=== PATIENT | female | born 1960 | race African-American/Black ===

== ENCOUNTER 2016-12-25 13:40 | Emergency (ER) | payer MEDICAID ==
[~2016-12-25] VITALS: Ht 162.6 cm; Wt 99.8 kg
[~2016-12-25 13:40] MED LIST: BACTRIM-DS1 EA ORAL; CLINDAMYCIN HC300 MG ORAL; NORCO 5-325 TA1 EACH ORAL
[2016-12-25 14:03] VITALS: BP 102/71
[2016-12-25] MEDS ORDERED: Norco 5mg/325mg tab ORAL ONE (14:15)
[2016-12-25] MEDS ORDERED: PREDNISONE20 MG ORAL (14:21)
[2016-12-25] MEDS ORDERED: NORCO 5-325 TA1 EAC1 ORAL (14:21)
[2016-12-25] MEDS ORDERED: IBUPROFEN600 MG ORAL (14:21)
[2016-12-25] MEDS ORDERED: BLEPH-105 ML OP (14:21)
[2016-12-25 14:34] VITALS: BP 102/71
--- NOTE | 2016-12-26 21:30 | Emergency Room Report ---
History of Present Illness General Chief Complaint: Eye Problems Present Illness HPI The patient is a 48-year-old female with a history of lupus presenting for right eye redness and pain for the past 4 days. She has noticed a discharge described as yellow. Pain described as a 3/10 dull ache and does not radiate. Worse with touch. She has noticed swelling of the upper eyelid. She denies any changes in vision or other symptoms including N, V, F, chills Allergies: Coded Allergies: AMOXICILLIN (Verified Allergy, Mild, 04/02/15) ERYTHROMYCIN BASE (Verified Allergy, Mild, 04/02/15) Patient History Past Medical History: see triage record Pertinent Family History: none Now: No Reviewed Nursing Documentation: PMH: Agreed, PSxH: Agreed Nursing Documentation-PMH Hx Hypertension: Yes Hx Asthma: Yes Hx Diabetes: Yes Review of Systems All Other Systems: negative except mentioned in HPI Physical Exam Vital Signs Date Time Temp Pulse Resp B/P Pulse Ox O2 Delivery O2 Flow Rate FiO2 12/25/16 13:46 97.9 78 20 100/69 100 Room Air Sp02 EP Interpretation: reviewed, normal General Appearance: no apparent distress, alert, GCS 15, non-toxic Head: normocephalic, atraumatic Eyes: right eye lid inflammation, bilateral eye EOMI, bilateral eye PERRL ENT: hearing grossly normal, normal pharynx, no angioedema, normal voice Neck: full range of motion, supple/symm/no masses Respiratory: chest non-tender, lungs clear, normal breath sounds, speaking full sentences Musculoskeletal: back normal, gait/station normal, normal range of motion, non- tender Neurologic: alert, oriented x3, responsive, motor strength/tone normal, sensory intact, speech normal Psychiatric: judgement/insight normal, memory normal, mood/affect normal, no suicidal/homicidal ideation Skin: normal color, no rash, warm/dry, well hydrated Lymphatic: no adenopathy Medical Decision Making PA Attestation Dr. Robledo is my supervising physician. Patient management was discussed with my supervising physician Diagnostic Impression: Primary Impression: Blepharitis Qualified Codes: H01.001 - Unspecified blepharitis right upper eyelid Additional Impression: Lupus Qualified Codes: M32.9 - Systemic lupus erythematosus, unspecified ER Course The patient is a 48-year-old female with a history of lupus presenting for right upper eyelid redness Differential diagnoses considered but not limited to allergic conjunctivitis, bacterial conjunctivitis, viral conjunctivitis, blepharitis, hordeolum PE: vitals WNL. NAD HEENT reveals R upper eyelid erythema and edema with crusting. No conjunctival injection. Otherwise unremarkable The pt will be OR'ed with prescription for bleph 10 as she is allergic to macrolides. She is also given a short dose of steroids as she states she is having lupus flare up. She will FU with PMD and rheumatology. ER precautions given Last Vital Signs Date Time Temp Pulse Resp B/P Pulse Ox O2 Delivery O2 Flow Rate FiO2 12/25/16 14:34 98.0 81 19 102/71 100 Room Air Status: improved Disposition: HOME, SELF-CARE Condition: Improved Scripts Sulfacetamide Sodium (BLEPH-10) 5 Ml Drops 3 DROP OP Q3HR, #5 ML Prov: MINDY GAN P.A. 12/25/16 Hydrocodone Bit/Acetaminophen 5-325* (NORCO 5-325 TABLET*) 1 Each Tablet 1 TAB ORAL Q6HR Y for For Pain, #8 TAB Prov: TERORLANDOANAMAURIY P.A. 12/25/16 Prednisone* (PREDNISONE*) 20 Mg Tablet 40 MG ORAL DAILY, #10 TAB Prov: TERZIAN,MINDY P.A. 12/25/16 Ibuprofen* (MOTRIN*) 600 Mg Tablet 600 MG ORAL Q8H Y for For Pain, #30 TAB 0 Refills Prov: TERZIANMINDY P.A. 12/25/16 Referrals: NON PHYSICIAN (PCP) Patient Instructions: Blepharitis, Systemic Lupus Erythematosus, Adult Additional Instructions: I discussed my findings with the patient. All questions and concerns have been answered. Treatment and medication compliance have been addressed. I advised the patient that they need to follow up with primary doctor and rheumatology as soon as possible. Return to ED if symptoms worsen, new symptoms arise, or if needed for any reason. Patient verbalized understanding of discharge instructions. MINDY GAN December 26, 2016 21:30
== END 2016-12-25 14:35 | disposition home or self-care (01) ==
LOC: EMR 14:10
DX: H01.001 Unspecified blepharitis right upper eyelid (principal); M32.9 Systemic lupus erythematosus, unspecified; I10 Essential (primary) hypertension; E11.9 Type 2 diabetes mellitus without complications; J45.909 Unspecified asthma, uncomplicated; Z88.1 Allergy status to other antibiotic agents
CPT/HCPCS: 99284

== ENCOUNTER 2019-03-22 09:07 | Emergency (ER) | payer MEDICAID, OTHER ==
[~2019-03-22] VITALS: Ht 160 cm; Wt 80.7 kg
[~2019-03-22 09:07] MED LIST changes: +BLEPH-105 ML OP; +IBUPROFEN600 MG ORAL; +NORCO 5-325 TA1 EAC1 ORAL; +PREDNISONE20 MG ORAL
[2019-03-22] MEDS ORDERED: ASPIRIN81 MG ORAL (09:15)
--- NOTE | 2019-03-22 09:41 | Emergency Room Report ---
History of Present Illness General Chief Complaint: Pain Source: Patient Present Illness HPI She is a 59-year-old female presents for increased right-sided hand pain. Patient reports having worsening pain which she noticed when awaking this morning approximate 4 AM. Patient reports having prior history of lupus as well as carpal tunnel disease. She reports having pain to both wrists but this is worse on the right upper extremity. Patient denies taking any steroids or other disease modifying agents for lupus. She states he was diagnosed approximately 2 years ago. Patient denies other locations of discomfort. She reports having pain primarily to the hand. Allergies: Coded Allergies: AMOXICILLIN (Verified Allergy, Mild, 04/02/15) ERYTHROMYCIN BASE (Verified Allergy, Mild, 04/02/15) Patient History Past Medical History: see triage record Now: No Reviewed Nursing Documentation: PMH: Agreed; PSxH: Agreed Nursing Documentation-PMH Past Medical History: No History, Except For Hx Hypertension: Yes Hx Asthma: Yes Hx Diabetes: Yes Review of Systems All Other Systems: negative except mentioned in HPI Physical Exam Vital Signs Date Time Temp Pulse Resp B/P (MAP) Pulse Ox O2 Delivery O2 Flow Rate FiO2 03/22/19 09:10 99.0 92 20 166/72 (103) 96 Room Air General Appearance: well appearing, no apparent distress, alert, GCS 15 Head: normocephalic, atraumatic ENT: hearing grossly normal, normal voice Neck: full range of motion, supple Respiratory: no respiratory distress, speaking full sentences Musculoskeletal: no calf tenderness Neurologic: normal gait Psychiatric: mood/affect normal Skin: no rash Medical Decision Making Diagnostic Impression: Primary Impression: Arthralgia Additional Impression: Lupus ER Course Patient presented for right hand pain. Differential diagnosis include was not limited to arthritis, vasculitis, carpal tunnel disease among others. X-ray imaging of the hand was ordered due to patient's locations of pain. Patient appears to be perfusing well. Patient noted to be no apparent distress she appears to have normal strength of her hand however ranges limited by discomfort.Patient does not appear to have any evidence of vascular compromise or neurologic deficit. She does not appear to have any focal weakness however she was noted to have some swelling to her entire hand including the thumb. Patient's x-rays showed degenerative changes with evidence of chronic carpal metacarpal joint arthritis. See radiology report for complete details. Patient was given pain medications as well as anti-inflammatories in the emergency department. She was given prescription for topical pain medications as well as oral steroids. She is advised to return if worse. 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 Last Vital Signs Date Time Temp Pulse Resp B/P (MAP) Pulse Ox O2 Delivery O2 Flow Rate FiO2 03/22/19 09:10 99.0 92 20 166/72 (103) 96 Room Air Status: improved Disposition: HOME, SELF-CARE Condition: Stable Scripts Prednisone* (PREDNISONE*) 20 Mg Tablet 40 MG ORAL DAILY, #10 TAB Prov: Gregorio Jovel MD 03/22/19 Diclofenac Sodium (VOLTAREN) 100 Gm Gel..gram. 5 GM TP DAILY for pain, #100 GM Prov: Gregorio Jovel MD 03/22/19 Gregorio Jovel MD Mar 22, 2019 09:41
[2019-03-22] MEDS ORDERED: Ketorolac 60mg Inj IM ONE (09:45)
[2019-03-22] MEDS ORDERED: Acetaminophen 500mg (ES) tab ORAL ONE (09:45)
--- NOTE | 2019-03-22 10:30 | Diagnostic Imaging Report ---
Clinical Indication:Right wrist pain Technique: 3 views of the right wrist Comparison: None Findings: There are severe degenerative changes of the first carpometacarpal joint, with marked degenerative remodeling of the trapezium and some heterotopic ossification. There are also degenerative changes of the first interphalangeal joint No acute fractures. No dislocations. The joint spaces are preserved. Impression: No acute bony trauma Degenerative changes as described
[2019-03-22] MEDS ORDERED: PREDNISONE20 MG ORAL ×4 (10:53→13:26)
[2019-03-22] MEDS ORDERED: VOLTAREN100 G1 TP ×4 (10:53→13:25)
[2019-03-22 11:03] VITALS: BP 157/82
== END 2019-03-22 11:03 | disposition home or self-care (01) ==
LOC: EMR 09:30
DX: M25.541 Pain in joints of right hand (principal); M32.9 Systemic lupus erythematosus, unspecified; E11.9 Type 2 diabetes mellitus without complications; J45.909 Unspecified asthma, uncomplicated; I10 Essential (primary) hypertension; Z88.1 Allergy status to other antibiotic agents; G56.00 Carpal tunnel syndrome, unspecified upper limb
CPT/HCPCS: 73110; 96372; 99283; J7512